=== PATIENT | male | born 1960 | race Caucasian/White ===

== ENCOUNTER 2018-09-28 07:12 | Day surgery (SDC) | payer BC ==
[~2018-09-28 07:12] MED LIST: Buffered Lidocaine 1% SYRIN* 1 ML/SYRINGE INTRADERM ONE; DiMENhydriNATE IV* 50 MG/ML VIAL IV PUSH PRN; Famotidine IV* 10 MG/ML 2 ML (20 mg) IV ONE; Lactated Ringers 1000 ML Bag* 1,000 ML IV SCH; Morphine 4 MG/ML VIAL (1 ml) 4 MG/ML VIAL IV PRN; Naloxone* 0.4 MG/ML 1 ML VIAL IV PRN; PROCHLORPERAZINE INJ 5 MG/ML 2 ML VIAL IV PRN; Scopolamine 1.5 mg* PATCH TRANSDERM PRN; fentaNYL* 50 MCG/ML 2 ML VIAL (100 MCG VIAL) IV PRN; oxyCODONE/Acetamin 5/325 MG* TAB PO PRN
[2018-09-28] MEDS ORDERED: ceFAZolin 2 GM in NS PREMIX(*) 2 GM/100 ML BAG IVPB ONE (07:38)
[2018-09-28] MEDS ORDERED: Famotidine IV* 10 MG/ML 2 ML (20 mg) ONE (07:38)
[2018-09-28] MEDS ORDERED: Midazolam* 1 MG/ML 5 ML VIAL (5 MG) ONE (07:57)
[2018-09-28] MEDS ORDERED: fentaNYL* 50 MCG/ML 2 ML VIAL (100 MCG VIAL) ONE (07:57)
[2018-09-28] MEDS ORDERED: KETAMINE HCL* 50 MG/ML 10 ML VIAL ONE (07:57)
[2018-09-28] MEDS ORDERED: Bupivacaine 0.5% W/EPI SDV* 30 ML VIAL ONE (09:13)
[2018-09-28] MEDS ORDERED: Lidocaine 1% INJ* 10 MG/ML 30 ML SDV ONE (09:13)
[2018-09-28] MEDS ORDERED: Propofol* 500 MG/50 ML BTL ONE (09:55)
[2018-09-28] MEDS ORDERED: hydrALAZINE IV* 20 MG/ML VIAL ONE (09:55)
[2018-09-28] MEDS ORDERED: Ketorolac INJ* 30 MG/ML 1 ML VIAL ONE (09:55)
[2018-09-28] MEDS ORDERED: oxyCODONE/Acetamin 5/325 MG* TAB ONE (10:55)
[2018-09-28 11:32] VITALS: BP 147/89
--- NOTE | 2018-09-28 11:33 | OP ---
DATE OF OPERATION: 09/28/18 - [facility] DATE OF : 56 ATTENDING SURGEON: Thomas Nicolas MD PRE-OP DIAGNOSIS: Large lipoma, left deltoid muscle, intramuscular. POST-OP DIAGNOSIS: Large lipoma, left deltoid muscle, intramuscular. OPERATIVE PROCEDURE: Excision of 8-cm lipoma, left deltoid, intramuscular. INDICATIONS: Symptomatic left deltoid intramuscular lipoma, large. Risks included, but not limited to bleeding, infection or recurrence of the lipoma, injury to the nerves were explained to the patient, who seemed to understand and agreed to the procedure, and all questions were answered. DESCRIPTION OF PROCEDURE: The patient was taken to the operating room and placed supine. Sedation was given by the anesthesiologist. Preoperative antibiotics were given. The left shoulder was prepped and draped in the sterile fashion. Time-out was performed indicating correct patient and correct procedure. The skin was anesthetized with plain Marcaine. An incision was made and carried down through the subcutaneous tissue with Bovie cautery. The fascia over the muscle was opened using Bovie cautery. The muscle fibers were split and retracted laterally revealing a large lipoma, which was bluntly excised from the surrounding tissue, it was approximately 8 cm in largest dimension. The wound was irrigated. EBL minimal. Hemostasis was intact. The muscle was closed with interrupted 3-0 Vicryl. The fascia was closed with interrupted 3-0 Vicryl. The skin was closed with 3-0 Monocryl. Glue was applied to the skin. He tolerated the procedure well. [id number] #: [id number] MTDD
[2018-10-01] MEDS ORDERED: Scopolamine PATCH Remove* 1 NOTE MISC PATCH OFF ONE (05:46)
== END 2018-09-28 11:53 | disposition home or self-care (01) ==
LOC: OR 07:12
PROVIDERS: ATTEND Surgery
DX: D17.79 Benign lipomatous neoplasm of other sites (principal); M66.14 Rupture of synovium, hand and fingers; I10 Essential (primary) hypertension; E78.00 Pure hypercholesterolemia, unspecified; Z87.891 Personal history of nicotine dependence
CPT/HCPCS: 88304; A9270-GY; J0360; J0690; J1885; J2250; J2704; J3010